=== PATIENT | male | born 1995 | race Caucasian/White ===

== ENCOUNTER 2016-07-17 11:39 | Emergency (ER) | payer OTHER ==
[~2016-07-17] VITALS: Ht 182.9 cm; Wt 108.9 kg
[2016-07-17 11:50] VITALS: BP 158/76
--- NOTE | 2016-07-17 13:06 | NUR ---
Patient ambulated to bed 02.
--- NOTE | 2016-07-17 13:13 | NUR ---
PATIENT PRESENTS TO ED WITH PT PRESENTS TO ER W/C/O N/V/D X1 WEEK. SKIN IS PINK/WARM/DRY; AAOX4 WITH EVEN AND STEADY GAIT; LUNGS CLEAR BL; HR EVEN AND REGULAR; PT DENIES ANY FEVER, CP, SOB, OR COUGH AT THIS TIME; PATIENT STATES PAIN OF 0/10 AT THIS TIME; VSS; PATIENT POSITIONED FOR COMFORT; HOB ELEVATED; BEDRAILS UP X2; BED DOWN. ER MD MADE AWARE OF PT STATUS.
--- NOTE | 2016-07-17 14:01 | NUR ---
Dr. Sanders evaluating patient at bedside.
[2016-07-17] MEDS ORDERED: ONDANSETRON 4 MG/2 ML VIAL IVP ONE (14:20)
[2016-07-17] MEDS ORDERED: KETOROLAC 30 MG/ML VIAL IVP ONE (14:20)
[2016-07-17] MEDS ORDERED: NACL 0.9% 1,000 ML IV ONE (14:20)
--- NOTE | 2016-07-17 15:13 | NUR ---
Patient to CT via wheelchair per tech.
--- NOTE | 2016-07-17 15:26 | NUR ---
Patient back from CT via wheelchair per tech.
[2016-07-17 15:57] VITALS: BP 134/70
--- NOTE | 2016-07-17 15:57 | NUR ---
Patient discharged with v/s stable. Written and verbal after care instructions given and explained. Patient alert, oriented and verbalized understanding of instructions. Ambulatory with steady gait. All questions addressed prior to discharge. ID band removed. Patient advised to follow up with PMD. Rx of TRAMADOL AND ZOFRAN given. Patient educated on indication of medication including possible reaction and side effects. Opportunity to ask questions provided and answered.
== END 2016-07-17 15:57 | disposition home or self-care (01) ==
LOC: MED 11:39
DX: A08.4 Viral intestinal infection, unspecified (principal); R03.0 Elevated blood-pressure reading, without diagnosis of hypertension
CPT/HCPCS: 36415; 74176; 80053; 85025; 85610; 85730; 96361; 96374; 96375; 99285; J1885; J2405; J7030

== ENCOUNTER 2017-12-07 15:40 | Emergency (ER) | payer SELFPAY ==
[~2017-12-07] VITALS: Ht 182.9 cm; Wt 99.8 kg
[2017-12-07 15:55] VITALS: BP 127/82
--- NOTE | 2017-12-07 17:45 | NUR ---
PATIENT TO BED 2.
--- NOTE | 2017-12-07 17:50 | NUR ---
PATIENT PRSENTS TO ED WITH COMPLAINTS OF LOWER BACK PAIN X 2 DAYS. DENIES N/V/D; SKIN IS PINK/WARM/DRY; AAOX4 WITH EVEN AND STEADY GAIT; LUNGS CLEAR BL; HR EVEN AND REGULAR; PT DENIES ANY FEVER, CP, SOB, OR COUGH AT THIS TIME; PATIENT STATES PAIN OF 7/10 AT THIS TIME; VSS; PATIENT POSITIONED FOR COMFORT; HOB ELEVATED; BEDRAILS UP X1; BED DOWN. ER MD MADE AWARE OF PT STATUS.
--- NOTE | 2017-12-07 19:09 | NUR ---
REPORT GIVEN TO JOHNIE DONAHUE.
--- NOTE | 2017-12-07 19:15 | NUR ---
PATIENT RESTING AT THIS TIME. NO SIGNS OF DISTRESS.
[2017-12-07 20:35] VITALS: BP 119/85
--- NOTE | 2017-12-07 20:35 | NUR ---
Patient discharged with v/s stable. Written and verbal after care instructions given and explained. Patient alert, oriented and verbalized understanding of instructions. Ambulatory with steady gait. All questions addressed prior to discharge. ID band removed. Patient advised to follow up with PMD. Rx of MEDROL DOSEPAK 4MG AND MOTRIN 800MG given. Patient educated on indication of medication including possible reaction and side effects. Opportunity to ask questions provided and answered.
== END 2017-12-07 20:35 | disposition home or self-care (01) ==
LOC: MED 15:40
DX: M62.830 Muscle spasm of back (principal); M54.5 Low back pain
CPT/HCPCS: 99283

== ENCOUNTER 2020-11-15 18:13 | Emergency (ER) | payer OTHER ==
[~2020-11-15] VITALS: Ht 182.9 cm; Wt 99.3 kg
[2020-11-15 18:26] VITALS: BP 115/88
--- NOTE | 2020-11-15 18:35 | NUR ---
PT TAKEN TO BED 8.
--- NOTE | 2020-11-15 19:09 | NUR ---
25 Y/O M BIB [facility] FROM HOME, PATIENT PRESENTS TO ED WITH FLU/COLD-LIKE SYMPTOMS, SORE THROAT, N/V/D, 10X EPISODES OF DIARRHEA TODAY. PT STATES HE TOOK DAYLIGHT 7AM WITH NO RELIEF. SKIN IS PINK/WARM/DRY; AAOX4 WITH EVEN AND STEADY GAIT; LUNGS CLEAR BL; HR EVEN AND REGULAR; PT DENIES ANY FEVER, CP, SOB, OR COUGH AT THIS TIME; PATIENT STATES PAIN OF 5/10 AT THIS TIME; VSS; PATIENT POSITIONED FOR COMFORT; HOB ELEVATED; BEDRAILS UP X2; BED DOWN. ER MD MADE AWARE OF PT STATUS. PMH: DENIES NKA
--- NOTE | 2020-11-15 19:29 | NUR ---
REPORT GIVEN TO LEELA JETT. TRANSFER OF CARE AT THIS TIME.
[2020-11-15] MEDS ORDERED: ONDANSETRON 4 MG ODT PO ONE (19:30)
[2020-11-15] MEDS ORDERED: LOPERAMIDE 2 MG CAP PO ONE (19:30)
--- NOTE | 2020-11-15 19:30 | NUR ---
RECEIVED REPORT FROM DAY SHIFT NURSE FOR CONTINUITY OF CARE. PT IS STABLE AT THIS TIME.
[2020-11-15] MEDS ORDERED: IMO2 PO (19:32)
[2020-11-15] MEDS ORDERED: ONDA4TAB PO (19:32)
--- NOTE | 2020-11-15 19:40 | NUR ---
AT BEDSIDE ASSESSING PT.
[2020-11-15] MEDS ORDERED: ACETAMINOPHEN EXTRA STRENGTH 500 MG TAB PO ONE (19:45)
[2020-11-15] MEDS ORDERED: NACL 0.9% 1,000 ML IV ONE (19:45)
[2020-11-15 19:57] LABS: BASOPHILS % (AUTO) 0.3 % (0.0-2.0); HEMOGLOBIN 15.3 g/dL (12.0-18.0); LYMPHOCYTES # (AUTO) 1.4 K/uL (2.0-11.5); LYMPHOCYTES % (AUTO) 13.6 % (20.5-51.1); MEAN CORPUSCULAR HEMOGLOBIN 29 pg (27-31); MEAN CORPUSCULAR HGB CONC 34 g/dL (33-37); MONOCYTES # (AUTO) 1.9 K/uL (0.8-1.0); NEUTROPHILS # (AUTO) 6.8 K/uL (1.8-7.7); NEUTROPHILS % (AUTO) 67.4 % (42.2-75.2); PLATELET COUNT (AUTO) 219 K/uL (140-450); RED BLOOD CELL COUNT(AUTO) 5.24 MIL/uL (4.20-6.10); RED CELL DISTRIBUTION WIDTH 12.7 % (11.6-13.7)
[2020-11-15 20:19] LABS: ALBUMIN 3.6 g/dL (3.4-5.0); CREATININE 1.4 mg/dL (0.6-1.3); POTASSIUM 3.6 mmol/L (3.5-5.1); TOTAL BILIRUBIN 0.4 mg/dL (0.0-1.0)
[2020-11-15 20:34] LABS: CARBON DIOXIDE 24.6 mmol/L (21-32)
[2020-11-15 20:43] LABS: MONOCYTES % (AUTO) 18.7 % (1.7-9.3)
--- NOTE | 2020-11-15 21:18 | NUR ---
PT HAS NOT HAD ANY MORE EPISODES OF NAUSEA/VOMITING/DIARRHEA. PT IS STABLE. IV FLUIDS ARE FINISHED INFUSING. WILL D/C SHORTLY.
--- NOTE | 2020-11-15 21:22 | NUR ---
Patient discharged with v/s stable. Written and verbal after care instructions given and explained. Patient alert, oriented and verbalized understanding of instructions. Ambulatory with steady gait. All questions addressed prior to discharge. ID band removed. Patient advised to follow up with PMD. Rx of ZOFRAN ODT, AND LOPERAMIDE given. Patient educated on indication of medication including possible reaction and side effects. Opportunity to ask questions provided and answered.
[2020-11-15 21:23] VITALS: BP 115/88
--- NOTE | 2020-11-16 18:55 | NUR ---
LATE ENTRY- 0.9% NS BOLUS DISCONTINED AT 1900
== END 2020-11-15 21:22 | disposition home or self-care (01) ==
LOC: MED 18:13
DX: R11.2 Nausea with vomiting, unspecified (principal); R19.7 Diarrhea, unspecified; E86.0 Dehydration; F50.9 Eating disorder, unspecified; Z79.899 Other long term (current) drug therapy
CPT/HCPCS: 36415; 80053; 83690; 85025; 96360; 99284; Q0162

== ENCOUNTER 2021-03-14 03:02 | Emergency (ER) | payer OTHER ==
[~2021-03-14] VITALS: Ht 182.9 cm; Wt 104.3 kg
[~2021-03-14 03:02] MED LIST: IMO2 PO; ONDA4TAB PO
[2021-03-14 03:15] VITALS: BP 117/65
--- NOTE | 2021-03-14 03:21 | NUR ---
TO LOBBY FOLLOWING TRIAGE
--- NOTE | 2021-03-14 05:03 | NUR ---
MOVED TO ER BED 7
[2021-03-14] MEDS ORDERED: LIDOCAINE 2% 1000 MG/50 ML VIAL INJ ONE (05:15)
[2021-03-14] MEDS ORDERED: DRY DRESSING MC SCH (06:15)
[2021-03-14] MEDS ORDERED: BACITRACIN OINT 500 UNITS/GM PKT TP ONE (06:15)
[2021-03-14] MEDS ORDERED: BACI1PAC6 TP (06:17)
[2021-03-14 06:28] VITALS: BP 117/65
--- NOTE | 2021-03-14 06:29 | NUR ---
Patient discharged with v/s stable. Written and verbal after care instructions given and explained. Patient verbalized understanding. Ambulatory with steady gait. All questions addressed prior to discharge. Advised to follow up with PMD.
== END 2021-03-14 06:29 | disposition home or self-care (01) ==
LOC: MED 03:02
DX: S61.011A Laceration without foreign body of right thumb without damage to nail, initial encounter (principal); Z79.899 Other long term (current) drug therapy; W26.0XXA Contact with knife, initial encounter; Y93.89 Activity, other specified; Y92.89 Other specified places as the place of occurrence of the external cause; Y99.8 Other external cause status
CPT/HCPCS: 12002; 90471; 90715; 99283; J2001; 12001